=== PATIENT | female | born 1990 | race Caucasian/White ===

== ENCOUNTER 2018-03-09 11:44 | Day surgery (SDC) | payer OTHER ==
[2018-03-09] MEDS ORDERED: FENTANYL CITRATE INJ/PF 100 MCG/2 ML AMPUL IV ONE (12:41)
[2018-03-09] MEDS ORDERED: METOCLOPRAMIDE HCL INJ/PF 10 MG/2 ML SDV IV ONE (12:41)
--- NOTE | 2018-03-09 12:41 | ER Document Report ---
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 Patient's postop surgery on the and was Trisha is here on vacation began having pain I have greeted and performed a rapid initial assessment of this patient. A comprehensive ED assessment and evaluation of the patient, analysis of test results and completion of the medical decision making process will be conducted by additional ED providers. PHYSICAL EXAMINATION: GENERAL: Well-appearing, well-nourished and in mild acute distress. HEAD: Atraumatic, normocephalic. EYES: Pupils equal round extraocular movements intact, conjunctiva are normal. ENT: Nares patent NECK: Normal range of motion LUNGS: No respiratory distress Musculoskeletal: Normal range of motion NEUROLOGICAL: Normal speech, normal gait. PSYCH: Normal mood, normal affect. SKIN: Warm, Dry, normal turgor, no rashes or lesions noted. TRAVEL OUTSIDE OF THE [place] IN LAST 30 DAYS: No - Related Data Allergies/Adverse Reactions: No Known Allergies Allergy (Unverified 03/09/18 11:46) Past Medical History - Social History Chew tobacco use (# tins/day): No Frequency of alcohol use: None Drug Abuse: None Renal/ Medical History: Denies: Hx Peritoneal Dialysis Past Surgical History: Reports: Hx Tonsillectomy Physical Exam - Vital signs Vitals: Temp Pulse Resp BP Pulse Ox 98.5 F 113 H 20 116/64 98 03/09/18 12:07 03/09/18 12:07 03/09/18 12:07 03/09/18 12:07 03/09/18 12:07 Course - Vital Signs Vital signs: Temp Pulse Resp BP Pulse Ox 98.5 F 113 H 20 116/64 98 03/09/18 12:07 03/09/18 12:07 03/09/18 12:07 03/09/18 12:07 03/09/18 12:07
--- NOTE | 2018-03-09 13:01 | ER Document Report ---
ED General - General Chief Complaint: Abdominal Pain Stated Complaint: ABDOMINAL PAIN Time Seen by Provider: 03/09/18 12:17 Mode of Arrival: Ambulatory Information source: Patient Notes: 27-year-old female presents with complaints of right upper quadrant abdominal pain. Patient noted to have a 23% ejection fraction. Patient supposed to have surgery on the and was Trisha. Is here visiting and the pain has worsened. TRAVEL OUTSIDE OF THE [place] IN LAST 30 DAYS: No - HPI Onset: Other Onset/Duration: Intermittent Quality of pain: Sharp Severity: Moderate Pain Level: 2 Associated symptoms: Nausea, Vomiting Exacerbated by: Food Relieved by: Denies Similar symptoms previously: Yes Recently seen / treated by doctor: Yes - Related Data Allergies/Adverse Reactions: No Known Allergies Allergy (Unverified 03/09/18 11:46) Past Medical History - General Information source: Patient - Social History Smoking Status: Never Smoker Cigarette use (# per day): No Chew tobacco use (# tins/day): No Smoking Education Provided: No Frequency of alcohol use: None Drug Abuse: None Family History: Reviewed & Not Pertinent Patient has suicidal ideation: No Patient has homicidal ideation: No Renal/ Medical History: Denies: Hx Peritoneal Dialysis Past Surgical History: Reports: Hx Tonsillectomy Review of Systems - Review of Systems Notes: REVIEW OF SYSTEMS: CONSTITUTIONAL : Denies fever, chills, or sweats. Denies recent illness. EENT: Denies eye, ear, throat, or mouth pain or symptoms. Denies nasal or sinus congestion or discharge. Denies throat, tongue, or mouth swelling or difficulty swallowing. CARDIOVASCULAR: Denies chest pain. Denies palpitations or racing or irregular heart beat. Denies ankle edema. RESPIRATORY: Denies cough, cold, or chest congestion. Denies shortness of breath, difficulty breathing, or wheezing. GASTROINTESTINAL: Admits to abdominal pain. GENITOURINARY: Denies difficulty urinating, painful urination, burning, frequency, blood in urine, or discharge. FEMALE GENITOURINARY: Denies vaginal bleeding, heavy or abnormal periods, irregular periods. Denies vaginal discharge or odor. MUSCULOSKELETAL: Denies back or neck pain or stiffness. Denies joint pain or swelling. SKIN: Denies rash, lesions or sores. HEMATOLOGIC : Denies easy bruising or bleeding. LYMPHATIC: Denies swollen, enlarged glands. NEUROLOGICAL: Denies confusion or altered mental status. Denies passing out or loss of consciousness. Denies dizziness or lightheadedness. Denies headache. Denies weakness or paralysis or loss of use of either side. Denies problems with gait or speech. Denies sensory loss, numbness, or tingling. Denies seizures. PSYCHIATRIC: Denies anxiety or stress. Denies depression, suicidal ideation, or homicidal ideation. ALL OTHER SYSTEMS REVIEWED AND NEGATIVE. PHYSICAL EXAMINATION: GENERAL: Well-appearing, well-nourished and in moderate acute distress. HEAD: Atraumatic, normocephalic. EYES: Pupils equal round and reactive to light, extraocular movements intact, conjunctiva are normal. ENT: Nares patent, oropharynx clear without exudates. Moist mucous membranes. NECK: Normal range of motion, supple without lymphadenopathy LUNGS: Breath sounds clear to auscultation bilaterally and equal. No wheezes rales or rhonchi. HEART: Regular rate and rhythm without murmurs ABDOMEN: Soft, tender in the right upper quadrant no rebound or guarding. Female : deferred Musculoskeletal: Normal range of motion, no pitting or edema. No cyanosis. NEUROLOGICAL: Cranial nerves grossly intact. Normal speech, normal gait. Normal sensory, motor exams PSYCH: Normal mood, normal affect. SKIN: Warm, Dry, normal turgor, no rashes or lesions noted. Dictation was performed using My 1% voice recognition software Physical Exam - Vital signs Vitals: Temp Pulse Resp BP Pulse Ox 98.5 F 113 H 20 116/64 98 03/09/18 12:07 03/09/18 12:07 03/09/18 12:07 03/09/18 12:07 03/09/18 12:07 Course - Re-evaluation Re-evalutation: 03/09/18 13:34 Patient overall looks well but is quite tender, I have spoken with surgeon he will admit for surgical intervention - Vital Signs Vital signs: Temp Pulse Resp BP Pulse Ox 98.5 F 113 H 20 116/64 98 03/09/18 12:07 03/09/18 12:07 03/09/18 12:07 03/09/18 12:07 03/09/18 12:07 - Laboratory Result Diagrams: 03/09/18 12:45 03/09/18 12:45 Laboratory results interpreted by me: 03/09/18 03/09/18 12:45 12:45 WBC 12.1 H Urine Blood MODERATE H Discharge - Discharge Clinical Impression: Gallbladder disease Condition: Stable Disposition: ADMITTED INPATIENT Admitting Provider: Surgicalist Unit Admitted: Surgical Floor
[2018-03-09 13:23] LABS: HEMATOCRIT 45.1 % (36.0-47.0); HEMOGLOBIN 15.1 g/dL (12.0-15.5); MEAN CORPUSCULAR HEMOGLOBIN 30.5 pg (27.0-33.4); MEAN CORPUSCULAR HGB CONC 33.5 g/dL (32.0-36.0); MEAN CORPUSCULAR VOLUME 91 fl (80-97); PLATELET COUNT 298 10^3/uL (150-450); RED BLOOD COUNT 4.95 10^6/uL (3.72-5.28); RED CELL DISTRIBUTION WIDTH 13.3 % (11.5-14.0); WHITE BLOOD COUNT 12.1 10^3/uL (4.0-10.5)
[2018-03-09 13:32] LABS: APPEARANCE,URINE SLIGHTLY-CLOUDY; BILIRUBIN,URINE NEGATIVE (NEGATIVE); COLOR,URINE YELLOW; GLUCOSE, URINE NEGATIVE (NEGATIVE); KETONES,URINE NEGATIVE (NEGATIVE); LEUKOCYTE ESTERASE,URINE NEGATIVE (NEGATIVE); NITRITE,URINE NEGATIVE (NEGATIVE); PROTEIN,URINE NEGATIVE (NEGATIVE); UROBILINOGEN,URINE NEGATIVE mg/dL (<2.0)
[2018-03-09] MEDS ORDERED: NORMAL SALINE 1000 ML 2,000 ML IV PRN (13:32)
--- NOTE | 2018-03-09 13:42 | PDOC H&P ---
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 A GB ultrasound was done and was negative for stones or other abnormalities on 12/22/17. She presents to the ER c/o RUQ pain. Past Surgical History Past Surgical History: Reports: Tonsillectomy Social History Smoking Status: Never Smoker Frequency of Alcohol Use: Rare Hx Recreational Drug Use: No Family History Parental Family History Reviewed: No Children Family History Reviewed: No Sibling(s) Family History Reviewed.: No Medication/Allergy Allergies/Adverse Reactions: No Known Allergies Allergy (Unverified 03/09/18 11:46) Physical Exam Vital Signs: Temp Pulse Resp BP Pulse Ox 98.5 F 113 H 20 116/64 98 03/09/18 12:07 03/09/18 12:07 03/09/18 12:07 03/09/18 12:07 03/09/18 12:07 Intake & Output 03/08/18 03/09/18 03/10/18 06:59 06:59 06:59 Weight 59.4 kg General appearance: PRESENT: no acute distress Head exam: PRESENT: atraumatic Eye exam: PRESENT: EOMI Mouth exam: PRESENT: neck supple Neck exam: PRESENT: full ROM Respiratory exam: PRESENT: clear to auscultation rodolfo Cardiovascular exam: PRESENT: RRR GI/Abdominal exam: PRESENT: soft, tenderness - RUQ with guarding Rectal exam: PRESENT: deferred Extremities exam: PRESENT: full ROM Musculoskeletal exam: PRESENT: full ROM Skin exam: PRESENT: warm Results Laboratory Results: 03/09/18 12:45 03/09/18 03/09/18 12:45 12:45 WBC 12.1 H RBC 4.95 Hgb 15.1 Hct 45.1 MCV 91 MCH 30.5 MCHC 33.5 RDW 13.3 Plt Count 298 Seg Neutrophils % Not Reportable Lymphocytes % Not Reportable Monocytes % Not Reportable Eosinophils % Not Reportable Basophils % Not Reportable Absolute Neutrophils Not Reportable Absolute Lymphocytes Not Reportable Absolute Monocytes Not Reportable Absolute Eosinophils Not Reportable Absolute Basophils Not Reportable Urine Color YELLOW Urine Appearance SLIGHTLY-CLOUDY Urine pH 5.0 [address] [place] 1.020 Urine Protein NEGATIVE Urine Glucose (UA) NEGATIVE Urine Ketones NEGATIVE Urine Blood MODERATE H Urine Nitrite NEGATIVE Ur Leukocyte Esterase NEGATIVE Urine WBC (Auto) 5 Urine RBC (Auto) 1 Assessment & Plan - Plan Summary Plan Summary: A/ RUQ pain Diskenesia of GB as per HIDA scan done outside this hospital on 01/02/18 Negative US GB as 12/22 17 at outside hospital Negative urine test P/ Laparoscopic cholecystectomy, possible open, possible cholangiogram today Procedure, risks, benefits, complications, including bleeding from liver and or injury of the common bile duct which might require transfer to a tertiary center for ope repair have been discussed with the patient, her questions were answered, and she decided to proceed.
[2018-03-09 13:46] LABS: ALANINE AMINOTRANSFERASE 20 U/L (9-52); ALBUMIN 4.4 g/dL (3.5-5.0); ALKALINE PHOSPHATASE 47 U/L (38-126); ANION GAP 11 (5-19); ASPARTATE AMINO TRANSFERASE 20 U/L (14-36); BILIRUBIN,DIRECT 0.3 mg/dL (0.0-0.4); BLOOD UREA NITROGEN 16 mg/dL (7-20); CALCIUM 9.3 mg/dL (8.4-10.2); CARBON DIOXIDE 24 mmol/L (22-30); CHLORIDE 108 mmol/L (98-107); GLUCOSE 109 mg/dL (75-110); LIPASE 72.3 U/L (23-300); POTASSIUM 4.5 mmol/L (3.6-5.0); SODIUM 143.3 mmol/L (137-145); TOTAL PROTEIN 7.6 g/dL (6.3-8.2)
[2018-03-09] MEDS ORDERED: CEFOXITIN 1 GM/D5W RTU 1 GM/50 ML RTUPB IV SCH (14:00)
[2018-03-09 14:26] LABS: ABSOLUTE LYMPHOCYTES# (MANUAL) 0.4 10^3/uL (0.5-4.7); ABSOLUTE MONOCYTES # (MANUAL) 0.4 10^3/uL (0.1-1.4); ABSOLUTE NEUTROPHILS# (MANUAL) 11.3 10^3/uL (1.7-8.2); BASOPHILS % (MANUAL) 1 % (0-2); EOSINOPHILS % (MANUAL) 0 % (0-6); LYMPHOCYTES % (MANUAL) 3 % (13-45); MONOCYTES % (MANUAL) 3 % (3-13); PLATELET COMMENT ADEQUATE; RBC MORPHOLOGY COMMENT NORMO-CYTIC/CHROMIC; SEGMENTED NEUTROPHILS % (MAN) 93 % (42-78); TOTAL CELLS COUNTED 100
[2018-03-09] MEDS ORDERED: VECURONIUM BROMIDE INJ 10 MG VIAL IV ONE (14:28)
[2018-03-09] MEDS ORDERED: NEOSTIGMINE METHYLSULFATE 10 MG/10 ML VIAL ONE (14:28)
[2018-03-09] MEDS ORDERED: GLYCOPYRROLATE 1 MG/5 ML SYRINGE ONE (14:28)
[2018-03-09] MEDS ORDERED: LIDOCAINE 2% INJ-PF (20 MG/ML) 2 ML AMPUL ONE (14:28)
[2018-03-09] MEDS ORDERED: SUCCINYLCHOLINE CHLORIDE INJ 200 MG/10 ML VIAL ONE (14:28)
[2018-03-09] MEDS ORDERED: BUPIVACAINE HCL 0.5%-EPI 1:200000 INJ/PF 30 ML VIAL ONE ×2 (14:41→17:36)
[2018-03-09] MEDS ORDERED: MIDAZOLAM 2 MG/2 ML INJ ONE (17:32)
[2018-03-09] MEDS ORDERED: LIDOCAINE 2% INJ-PF (20 MG/ML) 10 ML AMPUL ONE (17:32)
[2018-03-09] MEDS ORDERED: FENTANYL CITRATE INJ/PF 100 MCG/2 ML AMPUL ONE ×2 (17:32→19:28)
[2018-03-09] MEDS ORDERED: ACETAMINOPHEN 1,000 MG/100 ML RTUPB IV ONE (17:33)
[2018-03-09] MEDS ORDERED: DEXAMETHASONE SOD PHOSPHATE INJ 4 MG/1 ML VIAL ONE (17:33)
[2018-03-09] MEDS ORDERED: PROPOFOL INJ 200 MG/20 ML VIAL IV ONE (17:33)
[2018-03-09] MEDS ORDERED: MORPHINE SULFATE 10 MG/ML INJ IV PRN (18:26)
[2018-03-09] MEDS ORDERED: FENTANYL CITRATE INJ/PF 100 MCG/2 ML AMPUL IV PRN ×3 (18:26)
[2018-03-09] MEDS ORDERED: MEPERIDINE HCL/PF INJ 25 MG/1 ML DISP.SYRIN IV PRN (18:26)
[2018-03-09] MEDS ORDERED: PROMETHAZINE HCL INJ 25 MG/1 ML VIAL IV PRN ×3 (18:26→20:19)
[2018-03-09] MEDS ORDERED: ONDANSETRON HCL INJ/PF 4 MG/2 ML SDV IV PRN (18:26)
[2018-03-09] MEDS ORDERED: DIPHENHYDRAMINE HCL 50 MG/ML VIAL IV PRN (18:26)
--- NOTE | 2018-03-09 19:40 | Operative Report ---
Nonrecallable Operative Report DATE OF SURGERY: 03/09/18 PREOPERATIVE DIAGNOSIS: severe RUQ abdominal pain. diskenesia gallbladder POSTOPERATIVE DIAGNOSIS: same OPERATION: laparoscopic cholecystectomy SURGEON: MARLIN URIAS ANESTHESIA: GA - plus 20 mL 0.5% lidocaine with epinephrine TISSUE REMOVED OR ALTERED: gallbladder COMPLICATIONS: none ESTIMATED BLOOD LOSS: < 5 mL INTRAOPERATIVE FINDINGS: normal appearing gallbladder PROCEDURE: see dictation
[2018-03-09] MEDS ORDERED: MORPHINE SULFATE 10 MG/ML INJ ONE (19:51)
[2018-03-09] MEDS ORDERED: ONDANSETRON 4 MG TAB.RAPDIS ONE (20:14)
[2018-03-09] MEDS ORDERED: NORMAL SALINE 1000 ML 1,000 ML IV PRN (20:18)
[2018-03-09] MEDS: CEFOXITIN SODIUM 2 GM in NORMAL SALINE 100 ML IV SCH (21:55)
[2018-03-09] MEDS ORDERED: CEFOXITIN SODIUM 2 GM in DEXTROSE 5%-WATER 100 ML IV SCH (22:00)
[2018-03-10] MEDS: MORPHINE SULFATE 10 MG/ML INJ IV PRN ×3 (00:12→12:53)
[2018-03-10] MEDS: CEFOXITIN SODIUM 2 GM in NORMAL SALINE 100 ML IV SCH ×2 (05:00→14:19)
[2018-03-10 05:41] LABS: HEMATOCRIT 38.8 % (36.0-47.0); HEMOGLOBIN 13.1 g/dL (12.0-15.5); MEAN CORPUSCULAR HEMOGLOBIN 30.8 pg (27.0-33.4); MEAN CORPUSCULAR HGB CONC 33.8 g/dL (32.0-36.0); MEAN CORPUSCULAR VOLUME 91 fl (80-97); PLATELET COUNT 233 10^3/uL (150-450); RED BLOOD COUNT 4.26 10^6/uL (3.72-5.28); RED CELL DISTRIBUTION WIDTH 13.4 % (11.5-14.0); WHITE BLOOD COUNT 9.3 10^3/uL (4.0-10.5)
[2018-03-10 05:50] LABS: ANION GAP 12 (5-19); BLOOD UREA NITROGEN 8 mg/dL (7-20); CALCIUM 8.3 mg/dL (8.4-10.2); CARBON DIOXIDE 18 mmol/L (22-30); CHLORIDE 109 mmol/L (98-107); GLUCOSE 117 mg/dL (75-110); POTASSIUM 4.3 mmol/L (3.6-5.0); SODIUM 138.9 mmol/L (137-145)
[2018-03-10] MEDS ORDERED: HEPARIN SOD (PORCINE) 5,000 UNIT/ML 1 ML SYRINGE SUBCUT SCH (08:00)
[2018-03-10 09:13] LABS: BLOOD UREA NITROGEN 8 mg/dL (7-20); CALCIUM 8.3 mg/dL (8.4-10.2); CARBON DIOXIDE 18 mmol/L (22-30); CHLORIDE 109 mmol/L (98-107); GLUCOSE 117 mg/dL (75-110); POTASSIUM 4.3 mmol/L (3.6-5.0)
[2018-03-10 09:14] LABS: ANION GAP 12 (5-19); SODIUM 138.9 mmol/L (137-145)
[2018-03-10 09:23] LABS: ALANINE AMINOTRANSFERASE 35 U/L (9-52); ALBUMIN 3.2 g/dL (3.5-5.0); ALKALINE PHOSPHATASE 31 U/L (38-126); ASPARTATE AMINO TRANSFERASE 47 U/L (14-36); BILIRUBIN,DIRECT 0.4 mg/dL (0.0-0.4)
--- NOTE | 2018-03-10 10:07 | PDOC PROGRESS REPORT ---
Subjective Progress Note for:: 03/10/18 Subjective:: patient is feeling well and c/o incisional pain only, no N/V Reason For Visit: DISORDER OF GALLBLADDER Physical Exam Vital Signs: Temp Pulse Resp BP Pulse Ox 98.3 F 99 16 117/66 100 03/09/18 20:54 03/09/18 20:54 03/09/18 20:54 03/09/18 20:54 03/09/18 20:54 Intake & Output 03/09/18 03/10/18 03/11/18 06:59 06:59 06:59 Intake Total 7780 Output Total 5490 Balance 2290 Weight 62.6 kg General appearance: PRESENT: no acute distress Respiratory exam: PRESENT: clear to auscultation rodolfo Cardiovascular exam: PRESENT: RRR GI/Abdominal exam: PRESENT: normal bowel sounds, soft, other - incisions C/D/I; presensent of Todd drain in RUQ with serous/irrigation fluid Results Laboratory Results: 03/10/18 04:30 03/10/18 04:30 03/10/18 03/10/18 04:30 04:30 WBC 9.3 RBC 4.26 Hgb 13.1 Hct 38.8 MCV 91 MCH 30.8 MCHC 33.8 RDW 13.4 Plt Count 233 Sodium 138.9 Potassium 4.3 Chloride 109 H Carbon Dioxide 18 L Anion Gap 12 BUN 8 Creatinine 0.57 Est GFR ( Amer) > 60 Est GFR (Non-Af Amer) > 60 Glucose 117 H Calcium 8.3 L Assessment & Plan - Diagnosis (2) Gallbladder anomaly Is this a current diagnosis for this admission?: Yes - Plan Summary Plan Summary: A/ POD#1 after laparoscopic cholecystectomy for symptomatic diskenesia of gallbladder Patient doing well, no n/v VSS, AF CBC normal LFT' normal Todd drain output only 40 mL since surgery, serous and irrigation fluid type only P/ Advance diet to regular remove Todd drain Home today Tomorrow resume activities as tolerated including driving and light exercise No wound care needed In AM: remove drain sponge, shower, cover open drain site with bandaid shower daily, nbo bath x 2 weeks follow up with your PCP in 1-2 weks follow up with our Surgery office in 2 weeks regular diet Tylenol/Aleve and ice packs as needed for pain
[2018-03-10 11:50] VITALS: BP 117/66
--- NOTE | 2018-03-11 09:09 | OPERATIVE REPORT E ---
Operative Report NAME: LILLY GALLARDO : 1990 AGE: 27Y DATE OF SURGERY: 03/09/2018 ROOM: 414 PREOPERATIVE DIAGNOSIS: Diskenesia GALLBLADDER. POSTOPERATIVE DIAGNOSIS: Diskenesia GALLBLADDER. OPERATION: Laparoscopic cholecystectomy. SURGEON: MARLIN URIAS M.D. ORGAN TUNER: None. ANESTHESIA: General plus 20 mL of 1% lidocaine with epinephrine. ESTIMATED BLOOD LOSS: Less than 5 mL. COMPLICATIONS: None. INDICATION AND FINDINGS: This is a healthy 27-year-old female who presented to the emergency room complaining of right upper quadrant pain. The patient has a history of symptomatic gallbladder for several months, and she presented to the emergency room complaining of severe abdominal pain. Blood work was within normal limits. She was able to give us the name of her medical doctor who ordered an ultrasound and [place], [place] , and told her that her gallbladder ultrasound was within normal limits. However, the HIDA scan of the gallbladder revealed a low ejection fraction of about 20%. Due to the intensity of the symptoms and the patient's appearance and physical exam, decision was made to perform a laparoscopic cholecystectomy, possible open, possible cholangiogram. Procedure, risks, benefits and complications were explained to the patient, who understands all of those, including the possibility of bleeding from the liver and/or injury to the common bile duct, which might require transfer to a tertiary center for open repair. She understands all the above, her questions answered, and she decided to proceed. PROCEDURE: Procedure was done in the operating room. Patient placed in supine position. General anesthesia induced by endotracheal tube intubation. Abdomen prepped and draped in the usual fashion. Incision was made just above the umbilicus. The skin was tented with towel clips and a 5-mm port with Optiview adapter and scope were inserted through the abdominal wall into the peritoneal cavity. CO2 pneumoperitoneum was then established, under direct visualization. The patient was then placed in reverse Trendelenburg position with the right side elevated. Under direct visualization, the gallbladder was grasped at the level of the fundus, elevated and retroflexed. The gallbladder neck was grasped and pulled anterior and to the right. The critical view of safety was obtained by dissecting with hook cautery at a low setting the cystic duct. Then the dissection was continued both medially and laterally so to divide the attachments of the cystic duct infundibulum with the liver. Once this was accomplished and the critical view was obtained, the peanut dissector was inserted posterior to the cystic duct. This confirmed resection of the cystic duct. This was doubly clipped proximally and distally and divided with scissors. Gallbladder was resected off the liver bed and extracted from the abdominal cavity with Endo bag. CO2 pneumoperitoneum was reestablished. During resection of the gallbladder, 1 tear was noted in the gallbladder, with spillage of bile. This was fully aspirated by irrigating the peritoneal cavity. In addition, a 15-Cambodian round Todd drain was placed into the peritoneal cavity through the umbilical port, starting from the right upper quadrant port site, and placed under the liver and secured to the skin with a nylon suture. The fascial defect of the epigastrium was closed with [id number] 0 Vicryl suture inserted with a fascial closure device. At this point, all the instruments were removed. The CO2 pneumoperitoneum was released. The ports were removed. The fascial defect of the epigastrium was closed with [id number] 0 Vicryl suture. All skin incisions were closed with 4-0 Vicryl running subcuticular suture. The patient tolerated the procedure well, extubated and transferred to the recovery room in satisfactory condition. DICTATING PHYSICIAN: MARLIN URIAS M.D. [id number] PHY#: [id number] ID: [id number] JOB#: [id number] ACCT: [id number] cc:MARLIN URIAS M.D. > MTDD
--- NOTE | 2018-03-11 09:33 | DISCHARGE SUMMARY E ---
Discharge Summary NAME: LILLY GALLARDO : 1990 AGE: 27Y ADMITTED: 03/09/2018 DISCHARGED: 03/10/2018 FINAL DIAGNOSES: 1. gallbladder. 2. Right upper quadrant pain. PROCEDURE: Laparoscopic cholecystectomy on 03/09/2018. COMPLICATIONS: None. HOSPITAL COURSE: A 27-year-old female with a history of right upper quadrant pain who presented to the Emergency Room with symptoms of severe right upper quadrant pain. Outside medical records were obtained demonstrating a decreased ejection fraction of the gallbladder about 23%. Because of the symptoms, the decision was made to take the patient to surgery and undergo laparoscopic cholecystectomy. The procedure was and was uneventful. A drain was left in place because of residual bile during the procedure. Her postop course was unremarkable. Vital signs remained stable. She presented with no nausea or vomiting and minimal incisional pain. On the day of discharge the patient had no complaints. Her vital signs were within normal limits. Physical exam was unremarkable. Blood work was within normal limits, including a CBC and liver profile. The Todd drain output was only 40 mL with serous fluid as well as serosanguinous fluid. On the day of discharge the drain was removed. The diet was advanced to regular and tolerated. The patient was discharged to home the same day, 03/10/2018. Set up appointment with her primary care physician in about a week as she is [place] of state. She is to take Tylenol or Aleve as needed for pain. Shower only for 2 weeks; she can bathe afterwards. Activity as tolerated ae MTDD
== END 2018-03-10 14:44 | disposition home or self-care (01) ==
LOC: ER 11:44 → EH 14:05 → UNDOADMIN 14:05 → OROUT 14:05 → 4N 20:51 → EH 20:51 → 4N 20:51 → OROUT 03-10 14:44 → UNDODISIN 03-10 14:44
PROVIDERS: ATTEND Surgery
DX: K81.1 Chronic cholecystitis (principal)
CPT/HCPCS: 99285; 96374; 96375; 36415 ×2; 87040; 83690; 85025; 85027; 81025; 80048; 80053 ×2; 81001; 88304 ×2; 94799; 47562; J2250; J3490 ×5; J1100; J0694 ×3; S0119; J3010; J2765; J2270 ×2; J0330; J2405; J7030; J2704; J0131; 790